=== PATIENT | male | born 1945 | race Caucasian/White ===

== ENCOUNTER → 2018-01-05 | Outpatient (CLI) | payer BC | LOC: COL.RAD 09:25 | DX: R22.41 Localized swelling, mass and lump, right lower limb (principal); S83.241A Other tear of medial meniscus, current injury, right knee, initial encounter; M92.51 Juvenile osteochondrosis of proximal tibia | CPT/HCPCS: A9585 ==

== ENCOUNTER → 2018-10-06 | Outpatient (CLI) | payer BC | LOC: COL.VAS 09:54 | DX: I65.21 Occlusion and stenosis of right carotid artery (principal); R09.89 Other specified symptoms and signs involving the circulatory and respiratory systems ==

== ENCOUNTER → 2024-06-29 | Outpatient (CLI) | payer MEDICARE, BC ==
[~2024-06-29] VITALS: Ht 177.8 cm; Wt 86.5 kg
[~2024-06-29] MED LIST: ENTRESTO 24 MG1 EACH PO; FIBERCON PO; FLOMAX 0.40.4 MG/CAP PO; GARLIC1000 MG PO; GLUCOSAMINE 1000 PO; IMITREX100 MG PO; LIPITOR 10MG10 MG PO; MELATONIN5 M1 SL; MULTI VITAMINS1 TAB PO; PREVAGEN PO; PROSCAR 5MG5 MG PO; TAMBOCOR50 MG PO; THE MEDICINE S200 M2 PO; THEROMEGA1000 MG PO; Triamcinolone 40 MG/ML 1 ML VIAL IJ SCH; VITAMIN C500 MG PO; VITAMIN D31000 IU PO
[2024-06-29 09:07] VITALS: BP 145/75; PULSE 57; TEMP 97.8
[2024-06-29 09:55] VITALS: BP 158/87; PULSE 55
== END ==
LOC: COL.RAD 08:42
DX: M51.36 Other intervertebral disc degeneration, lumbar region (principal)
CPT/HCPCS: J0665; J3301